=== PATIENT | female | born 1960 | race Caucasian/White ===

== ENCOUNTER 2024-09-23 18:01 | Emergency (ER) | payer MEDICAID ==
[~2024-09-23] VITALS: Ht 162.6 cm; Wt 65.0 kg
[2024-09-23 18:04] VITALS: O2SAT 100
[2024-09-23] MEDS ORDERED: ONDANSETRON HCL 4MG/2ML INJ IV ONE (18:15)
[2024-09-23] MEDS: SODIUM CHLORIDE 0.9% 1,000 ML IV ONE (20:11)
[2024-09-23 20:32] LABS: HEMATOCRIT. 32.3 % (36.0-48.0); HEMOGLOBIN. 10.5 g/dL (12.0-16.0); MEAN CORPUSCULAR HEMOGLOBIN 26.2 pg (28.0-32.0); MEAN CORPUSCULAR HGB CONC 32.4 g/dL (31.0-37.0); MEAN CORPUSCULAR VOLUME 80.8 fL (81.0-99.0); MEAN PLATELET VOLUME 8.9 fl (7.4-10.4); PLATELET 281 x1000/uL (130-400); RED CELL DISTRIBUTION WIDTH 17.3 % (11.6-14.6); WHITE BLOOD COUNT 10.6 x1000/uL (4.5-11.0)
[2024-09-23 20:35] LABS: CHLORIDE 102 mEq/L (98-107); SODIUM 137 mEq/L (136-145)
[2024-09-23 20:36] LABS: CALCIUM 9.2 mg/dL (8.7-10.4); CARBON DIOXIDE 26 mEq/L (21-32)
[2024-09-23 20:37] LABS: DIFFERENTIAL COMMENT 1
[2024-09-23 20:41] LABS: CREATININE 0.7 mg/dL (0.6-1.0); GLUCOSE 307 mg/dL (70-105); INR 1.1; PROTHROMBIN TIME 11.7 sec (9.6-11.0); UREA NITROGEN BLOOD 12 mg/dL (9-23)
[2024-09-23 20:43] LABS: ALANINE AMINOTRANSFERASE 11 IU/L (10-49); ALBUMIN 4.1 g/dL (3.2-4.8); ASPARTATE AMINOTRANSFERASE 16 IU/L (<34); BILIRUBIN DIRECT 0.1 mg/dL (<=3.0); BILIRUBIN TOTAL 0.3 mg/dL (0.1-1.0); PROTEIN TOTAL 6.6 g/dL (6.0-8.3)
[2024-09-23 20:44] LABS: TROPONIN I HIGH SENSITIVITY < 4 ng/L (3.0-34)
[2024-09-23 20:55] LABS: ANISOCYTOSIS 1+; PLATELET ESTIMATE NORMAL
[2024-09-23] MEDS: ONDANSETRON HCL 4MG/2ML INJ IV NR (21:01)
[2024-09-23 22:12] VITALS: TEMP 37.00296
[2024-09-24 01:09] VITALS: BP 133/78; PULSE 68; RESP 18; O2SAT 100
== END 2024-09-24 01:10 | disposition home or self-care (01) ==
LOC: ER 18:01
DX: B34.9 Viral infection, unspecified (principal); E11.65 Type 2 diabetes mellitus with hyperglycemia; I10 Essential (primary) hypertension
CPT/HCPCS: 80076; 80048; 83690; 85025; 85610; 84484; 36415; 71045; 74176; 93005; 96361; 96374; 99291; J2405; J7030; Z7610 ×3